=== PATIENT | female | born 1955 | race Caucasian/White ===

== ENCOUNTER 2021-12-21 11:10 | Emergency (ER) | payer MEDICARE, MEDICAID ==
[~2021-12-21] VITALS: Ht 152.4 cm; Wt 68.0 kg
[2021-12-21 11:23] VITALS: BP 166/68
[2021-12-21] MEDS ORDERED: IBUPROFEN 400MG TABLET PO ONE (12:00)
[2021-12-21] MEDS ORDERED: NAPR-1176 MT (13:11)
== END 2021-12-21 13:30 | disposition home or self-care (01) ==
LOC: ER 11:10
DX: M54.2 Cervicalgia (principal); E11.9 Type 2 diabetes mellitus without complications; I10 Essential (primary) hypertension; R60.9 Edema, unspecified; V43.62XA Car passenger injured in collision with other type car in traffic accident, initial encounter; Y93.89 Activity, other specified; Y92.89 Other specified places as the place of occurrence of the external cause; Y99.8 Other external cause status
CPT/HCPCS: 73090; 99284